=== PATIENT | female | born 1990 | race African-American/Black ===

== ENCOUNTER 2018-04-25 22:50 | Emergency (ER) | payer OTHER ==
[2018-04-26] MEDS: methylPREDNISolone INJ 125 MG/2 ML VIAL (J2930) IM (01:04)
== END 2018-04-26 01:42 | disposition home or self-care (01) ==
LOC: M ED 04-26 01:42
DX: J45.901 Unspecified asthma with (acute) exacerbation (principal); D57.3 Sickle-cell trait
CPT/HCPCS: J2930

== ENCOUNTER 2018-09-18 19:38 | Emergency (ER) | payer OTHER ==
[~2018-09-18] VITALS: Ht 160 cm; Wt 70.5 kg
[~2018-09-18 19:38] MED LIST: ALBU83IN NEB; PRED20TA PO; [UNRECOGNIZED DRUG - CODE] XX
[2018-09-18] MEDS ORDERED: KETOROLAC 30 MG/ML VIAL (J1885) IV ONE (20:15)
[2018-09-18] MEDS ORDERED: ONDANSETRON 4MG/2ML VIAL (J2405) IV ONE (20:15)
[2018-09-18] MEDS ORDERED: NS 1,000 ML IV ONE (20:15)
[2018-09-18 20:30] LABS: BASO % 0.4 % (0.0-1.0); EOS # 0.1 10^3/uL (0.0-0.50); EOS % 2.3 % (0.0-3.0); HEMATOCRIT 36.7 % (36.0-47.0); HEMOGLOBIN 11.8 g/dl (12.0-15.5); LYMPH # 1.6 10^3/uL (1.5-6.5); LYMPH % 31.3 % (24.0-44.0); MEAN CORPUSCULAR HGB CONC 32.2 g/dl (32.0-36.5); MONO # 0.4 10^3/uL (0.0-0.8); MONO % 6.8 % (0.0-5.0); PLATELET COUNT, AUTOMATED 297 10^3/uL (150-450); RED BLOOD COUNT 4.37 10^6/uL (4.00-5.40); WHITE BLOOD COUNT 5.2 10^3/uL (4.0-10.0)
[2018-09-18 21:36] LABS: BLOOD UREA NITROGEN 17 MG/DL (7-18); CALCIUM LEVEL 7.9 MG/DL (8.5-10.1); CARBON DIOXIDE LEVEL 28 MEQ/L (21-32); CHLORIDE LEVEL 113 MEQ/L (98-107); CREATININE FOR GFR 0.97 MG/DL (0.55-1.30); GLOMERULAR FILTRATION RATE > 60.0 (>60); GLUCOSE, FASTING 99 MG/DL (70-100); POTASSIUM SERUM 3.8 MEQ/L (3.5-5.1); SODIUM LEVEL 144 MEQ/L (136-145)
--- NOTE | 2018-09-18 21:38 | REPVR ---
EXAM: US Pelvis Limited, Transabdominal EXAM DATE/TIME: 09/18/2018 8:29 PM CLINICAL HISTORY: 28 years old, female; Hip pain; Right hip; Additional info: R/O hernia on right TECHNIQUE: Imaging protocol: Real-time transabdominal pelvic ultrasound with image documentation. Limited exam. COMPARISON: No relevant prior studies available. FINDINGS: Soft tissues: With scanning of the right inguinal canal, there is fat noted to extend into the inguinal canal with Valsalva consistent with fat filled hernia. No bowel is seen. IMPRESSION: Small fat filled right inguinal hernia. No bowel is seen Electronically signed by: Srinivasan Choi On 09/18/2018 21:38:15 PM
[2018-09-18] MEDS ORDERED: IBUP-1022 PO (21:50)
[2018-09-18 21:56] VITALS: BP 106/66
--- NOTE | 2018-09-19 00:58 | REP ---
Clinical: Pain with decreased range of motion. Technique: Neutral and frog lateral views of the right hip. Findings: No acute fracture or dislocation. Skeletal structures, joint spaces, and surrounding soft tissues appear normal. No subcutaneous emphysema or radiodense foreign body. Impression: Normal, age-appropriate right hip radiographs. Electronically Signed by Francis Freedman MD 09/19/2018 12:50 A
== END 2018-09-18 21:59 | disposition home or self-care (01) ==
LOC: M ED 19:38
DX: K40.90 Unilateral inguinal hernia, without obstruction or gangrene, not specified as recurrent (principal); J45.909 Unspecified asthma, uncomplicated
CPT/HCPCS: 73502; 76857; 80048; 81001; 84702; 85025; 96361; 96374; 96375; 99284; J1885; J2405

== ENCOUNTER 2019-12-28 07:47 | Emergency (ER) | payer OTHER ==
[~2019-12-28 07:47] MED LIST changes: +IBUP-1022 PO
[2019-12-28] MEDS ORDERED: ACETAMINOPHEN 500 MG TAB ONE (08:12)
[2019-12-28] MEDS ORDERED: ACETAMINOPHEN 500 MG TAB As Ordered ONE (08:12)
[2019-12-28] MEDS ORDERED: KETOROLAC 30 MG/ML 1ML VIAL As Ordered ONE (10:13)
[2019-12-28] MEDS ORDERED: KETOROLAC 30 MG/ML 1ML VIAL ONE (10:13)
[2020-03-12 21:52] LABS: HCG, SERUM QUALITATIVE NEGATIVE (NEGATIVE)
== END 2019-12-28 10:55 | disposition home or self-care (01) ==
LOC: M ED 07:47
DX: S80.211A Abrasion, right knee, initial encounter (principal); S80.01XA Contusion of right knee, initial encounter; S16.1XXA Strain of muscle, fascia and tendon at neck level, initial encounter; S09.90XA Unspecified injury of head, initial encounter; W01.0XXA Fall on same level from slipping, tripping and stumbling without subsequent striking against object, initial encounter; Y93.02 Activity, running; Y92.828 Other wilderness area as the place of occurrence of the external cause; J45.909 Unspecified asthma, uncomplicated
CPT/HCPCS: 36415; 70450; 72125; 73564; 84703; 96372; 99284; J1885

== ENCOUNTER 2020-11-08 19:36 | Emergency (ER) | payer OTHER ==
[~2020-11-08] VITALS: Ht 162.6 cm; Wt 65.9 kg
[2020-11-08] MEDS ORDERED: ALBU8.5H INH (19:45)
[2020-11-09] MEDS ORDERED: OLOPATADINE 0.1% OPHTH SOL 5ML(PATANOL) OU STA (01:24)
[2020-11-09] MEDS ORDERED: PSEUDOEPHEDRINE 30 MG TAB PO STA (01:24)
[2020-11-09] MEDS ORDERED: KETOROLAC 30 MG/ML 1ML VIAL IV ONE (01:25)
[2020-11-09] MEDS ORDERED: NS 1,000 ML IV ONE (01:25)
[2020-11-09] MEDS ORDERED: methylPREDNISolone 125MG 2ML VIAL IV ONE (01:25)
[2020-11-09] MEDS ORDERED: METOCLOPRAMIDE INJ 10MG/2ML VIAL (J2765 PER 1) IV ONE (01:25)
[2020-11-09] MEDS ORDERED: PSEU30TA88 PO (03:45)
[2020-11-09 04:11] VITALS: BP 108/70
== END 2020-11-09 04:18 | disposition home or self-care (01) ==
LOC: M ED 19:36
DX: G43.909 Migraine, unspecified, not intractable, without status migrainosus (principal); R09.81 Nasal congestion; J45.909 Unspecified asthma, uncomplicated
CPT/HCPCS: 96361; 96374; 96375; 99283; J1885; J2765; J2930

== ENCOUNTER 2021-01-16 05:47 | Emergency (ER) | payer OTHER ==
[~2021-01-16] VITALS: Ht 162.6 cm; Wt 64.9 kg
[~2021-01-16 05:47] MED LIST changes: +ALBU8.5H INH; +PSEU30TA88 PO
[2021-01-16 06:27] LABS: URINE PREG TEST NEGATIVE (NEGATIVE)
[2021-01-16] MEDS ORDERED: KETOROLAC 30 MG/ML 1ML VIAL IV ONE (06:50)
[2021-01-16] MEDS ORDERED: ONDANSETRON 4MG/2ML VIAL IV ONE (06:50)
[2021-01-16] MEDS ORDERED: NS 1,000 ML IV ONE (06:50)
[2021-01-16 07:20] LABS: BASO % 0.3 % (0.0-1.0); EOS # 0.1 10^3/uL (0.0-0.5); EOS % 2.4 % (0.0-3.0); HEMATOCRIT 37.4 % (36.0-47.0); HEMOGLOBIN 12.4 g/dl (12.0-15.5); LYMPH % 34.1 % (24.0-44.0); MEAN CORPUSCULAR HEMOGLOBIN 27.3 pg (27.0-33.0); MEAN CORPUSCULAR HGB CONC 33.2 g/dl (32.0-36.5); MEAN CORPUSCULAR VOLUME 82.2 fl (80.0-96.0); MONO # 0.3 10^3/uL (0.0-0.8); MONO % 11.7 % (2.0-8.0); NEUTROPHILS # 1.5 10^3/uL (1.5-8.5); NEUTROPHILS % 51.5 % (36.0-66.0); PLATELET COUNT, AUTOMATED 268 10^3/uL (150-450); RED BLOOD COUNT 4.55 10^6/uL (4.00-5.40); WHITE BLOOD COUNT 2.9 10^3/uL (4.0-10.0)
[2021-01-16 07:38] LABS: ALBUMIN 3.7 GM/DL (3.2-5.2); ALT/SGPT 20 U/L (12-78); BILIRUBIN,DIRECT 0.1 MG/DL (0.0-0.2); BILIRUBIN,TOTAL 0.5 MG/DL (0.2-1.0); BLOOD UREA NITROGEN 14 MG/DL (7-18); CALCIUM LEVEL 8.9 MG/DL (8.5-10.1); CARBON DIOXIDE LEVEL 24 MEQ/L (21-32); CHLORIDE LEVEL 109 MEQ/L (98-107); CREATININE FOR GFR 1.03 MG/DL (0.55-1.30); GLOMERULAR FILTRATION RATE > 60.0 (>60); GLUCOSE, FASTING 95 MG/DL (70-100); LIPASE 44 U/L (73-393); POTASSIUM SERUM 3.4 MEQ/L (3.5-5.1); SODIUM LEVEL 141 MEQ/L (136-145); TOTAL PROTEIN 6.9 GM/DL (6.4-8.2)
[2021-01-16] MEDS ORDERED: METOCLOPRAMIDE INJ 10MG/2ML VIAL (J2765 PER 1) IV ONE (08:40)
[2021-01-16] MEDS ORDERED: ONDA4TAB6 PO (09:40)
[2021-01-16 09:50] VITALS: BP 115/81
== END 2021-01-16 09:56 | disposition home or self-care (01) ==
LOC: M ED 05:47
DX: R10.2 Pelvic and perineal pain (principal); R19.7 Diarrhea, unspecified; R10.9 Unspecified abdominal pain; J45.909 Unspecified asthma, uncomplicated
CPT/HCPCS: 80048; 80076; 81001; 83690; 84703; 85025; 96361; 96374; 96375; 99284; J1885; J2405; J2765